=== PATIENT | female | born 1980 | race Caucasian/White ===

== ENCOUNTER 2023-06-26 21:52 | Observation (INO) | payer MEDICAID, SELFPAY ==
[2023-06-26 22:00] VITALS: BP 165/95; PULSE 87; RESP 18; TEMP 36.4; O2SAT 100
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
[2023-06-26] MEDS: KETOROLAC 60 MG/2 ML inj IM (22:23)
[2023-06-26] MEDS: HYDROmorphone 0.5 mg/0.5 ml inj 1 MG IM (22:24)
[2023-06-27] VITALS (9 sets, daily range): BP systolic 140–176; BP diastolic 76–121; PULSE 64–91; RESP 14–20; TEMP 35.9–36.7; O2SAT 95–98; BMI 47.2
[2023-06-27 00:10] LABS: Appearance Urine Cloudy (Clear); Bilirubin Urine Negative (Negative); Blood Urine Negative (Negative); Color Urine Yellow (Yellow); Glucose Urine Negative (Negative); Ketones Urine Negative (Negative); Leukocyte Esterase Urine Trace (Negative); Nitrite Urine Negative (Negative); Protein Urine Negative (Negative); Urobilinogen Urine 0.2 (0.2-1.0)
[2023-06-27 00:26] LABS: Bacteria Urine Moderate; RBC Urine 0-2 (0-2); Squamous Epithelial Cell Urine Few (None-Few)
[2023-06-27 00:30] LABS: Basophils Absolute Auto 0.03 K/uL (0.00-0.30); Basophils Percent Auto 0.4 % (0.0-3.0); Eosinophils Percent Auto 2.4 % (0.0-7.0); Hematocrit 41.6 % (33.0-51.0); Hemoglobin* 13.9 gm/dL (12.0-16.0); Immature Granulocytes Abs Auto 0.01 K/uL (0.00-0.30); Immature Granulocytes Pct Auto 0.1 %; Lymphocytes Absolute Auto 2.83 K/uL (0.90-2.90); Lymphocytes Percent Auto 33.3 % (20-44); Mean Corpuscular HGB Conc 33 gm/dL (32-36); Mean Corpuscular Hemoglobin 29 pg (26-34); Mean Corpuscular Volume 88 fL (80-100); Monocytes Percent Auto 4.5 % (0.0-11.0); Neutrophils Absolute Auto 5.05 K/uL (1.7-7.0); Neutrophils Percent Auto 59.3 % (42.0-72.0); Platelet Count* 283 K/uL (140-440); RDW Coefficient of Variation % 13.7 % (11.5-15.5); Red Blood Count 4.74 m/uL (4.00-5.20)
[2023-06-27] MEDS: LORazepam 2 MG/ML inj 0.5 MG IVP (00:33)
[2023-06-27] MEDS: 0.9 % SODIUM CHLORIDE 1000 ml 1,000 ML IV (00:33)
[2023-06-27 00:42] LABS: Chloride* 107 mmol/L (96-114); Sodium* 140 mmol/L (135-149)
[2023-06-27 00:43] LABS: Potassium* 3.8 mmol/L (3.6-5.1)
[2023-06-27 00:45] LABS: Creatinine* 0.7 mg/dL (0.5-1.5); Estimated Glomerular Filt Rate 109 ml/min
[2023-06-27 00:46] LABS: Anion Gap 5 mEq/L (7-15); Blood Urea Nitrogen* 11 mg/dL (5-24); Calcium* 9.3 mg/dL (8.4-10.6); Carbon Dioxide* 28 mmol/L (20-32); Glucose* 126 mg/dL (60-115)
[2023-06-27 00:49] LABS: C Reactive Protein* 1.3 mg/dL (0.5-1.0); Slide Review Reflex No
[2023-06-27 02:05] LABS: NT Pro B Type NatriureticPept* 108 pg/mL
[2023-06-27] MEDS: METHYLPREDNISOLONE SOD SUCC 62.5 MG/ML (125) 80 MG IVP (03:27)
[2023-06-27] MEDS: OxyCODONE/APAP 5-325 TABLET 2 TAB PO (03:28)
--- NOTE | 2023-06-27 04:15 | ED.NURSE ---
Patients to desk stating that the patient would like to leave. RN went into the room and patient stated that she didnt want to leave but that she wanted to go outside and smoke. Nurse explained that patient was unable to do this but provider her with nicotine options. Patient stated that she would try the lozenges. When staff brought them into the room patient refused them and said just admit me.
--- NOTE | 2023-06-27 04:41 | ED.NURSE ---
Nurse to nurse report given to ROCIO High
[2023-06-27] MEDS: ENOXAPARIN 30 MG/0.3ML INJ SUBCUT (06:31)
[2023-06-27] MEDS: hydrOXYzine pamoate 25 MG CAPSULE PO (06:35)
[2023-06-27] MEDS: ACETAMINOPHEN 325 MG TABLET PO (06:35)
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
[2023-06-27] MEDS: IBUPROFEN 400 MG TABLET PO (08:51)
[2023-06-27] MEDS: GABAPENTIN 300 MG CAPSULE PO ×3 (08:52→21:39)
[2023-06-27] MEDS: SODIUM CHLORIDE 0.9 % (FLUSH) 10 ML SYRINGE 5 ML IVF ×2 (08:52→21:40)
[2023-06-27] MEDS: IBUPROFEN 600 MG TABLET PO (12:53)
--- NOTE | 2023-06-27 12:57 | REH.PT ---
PT attempted evaluation x2 and both times pt was sleeping. Per nsg pt has been up without a device. Will attempt evaluation tomorrow if pt is appropriate.
--- NOTE | 2023-06-27 13:03 | REH.OT ---
Orders received for OT eval and treat. Attempted x 2 patient sleeping and not wanting to be disturbed. Will attempt on 06/28/23.
[2023-06-27 14:08] LABS: Ur HCG Qualitative* Negative (Negative)
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
--- NOTE | 2023-06-27 20:29 | PC.NURSE ---
Pt sleeping for vitals @1930, sig. other asked to let her sleep. Entered room @2019, pt sitting at bedside leaning on table. Pt not responding to primary writers questions rather sig. other answering. Offered medications per MAR, pt refused stated they don't help and she'll just deal with the pain.
[2023-06-27] MEDS: ENOXAPARIN 40 MG/0.4 ML INJ SUBCUT (21:39)
[2023-06-27] MEDS: OXYCODONE 5 MG TABLET PO (21:40)
[2023-06-27 22:54] LABS: Troponin I* < 0.01 ng/mL (0.01-0.04)
[2023-06-28] VITALS (8 sets, daily range): BP systolic 136–160; BP diastolic 86–112; PULSE 64–91; RESP 14–20; TEMP 36.1–36.4; O2SAT 91–97
[2023-06-28] MEDS: OXYCODONE 5 MG TABLET PO ×3 (03:11→12:04)
--- NOTE | 2023-06-28 06:40 | PC.NURSE ---
Pt slept most of night, up with sig. other to BR or sitting at bedside. See MAR for medication administration.
[2023-06-28] MEDS: ACETAMINOPHEN 325 MG TABLET PO ×2 (07:57→14:51)
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
--- NOTE | 2023-06-28 10:15 | CRLHL7_ITS ---
For Patients: As a result of the Century Cures Act, medical imaging exams and procedure reports are released immediately into your electronic medical record. You may view this report before your referring provider. If you have questions, please contact your health care provider. CLINICAL HISTORY: HX RENAL CELL CARCINOMA (LEFT, MASS SURGICALLY REMOVED), HX KIDNEY STONES, ABD PAIN COMPARISON: CT lumbar spine 06/26/2023 TECHNIQUE: Calhoun scale and color Doppler images were acquired of the kidneys and urinary bladder. FINDINGS: Small bilateral renal stones. No hydronephrosis. No solid mass. No cyst. The right kidney measures 11.9cm in length and the left kidney measures 11.9cm in length. The renal cortex measures 1.3 cm on the right and 1.3 cm on the left. Normal color Doppler flow to both kidneys. The urinary bladder appears normal. IMPRESSION: Tiny bilateral renal stones without hydronephrosis. No solid renal mass. Dictated by Aramis Win MD @ 06/28/2023 12:01:56 PM (Electronically Signed)
[2023-06-28 10:21] LABS: HCO3 VBG 23 mmol/L (21-28); Lactate* 2.2 mmol/L (0.5-1.9); PCO2 VBG 41 mmHG (40-50); PO2 VBG 69.8 mmHG (25-47); pH VBG 7.358 (7.32-7.43)
[2023-06-28] MEDS: GABAPENTIN 300 MG CAPSULE PO ×2 (10:24→14:51)
[2023-06-28 10:27] LABS: Basophils Percent Auto 0.1 % (0.0-3.0); Eosinophils Percent Auto 0.5 % (0.0-7.0); Hemoglobin* 14.1 gm/dL (12.0-16.0); Immature Granulocytes Pct Auto 0.2 %; Lymphocytes Percent Auto 21.3 % (20-44); Mean Corpuscular HGB Conc 34 gm/dL (32-36); Mean Corpuscular Hemoglobin 30 pg (26-34); Mean Corpuscular Volume 88 fL (80-100); Monocytes Percent Auto 3.2 % (0.0-11.0); Neutrophils Percent Auto 74.7 % (42.0-72.0); Platelet Count* 288 K/uL (140-440); RDW Coefficient of Variation % 13.9 % (11.5-15.5); Red Blood Count 4.78 m/uL (4.00-5.20); White Blood Count* 13.05 K/uL (4.50-11.00)
[2023-06-28 10:38] LABS: Amphetamine Screen Urine POSITIVE (Negative); Barbiturate Screen Urine Negative (Negative); Benzodiazepines Screen Urine Negative (Negative); Cannabinoid Screen Urine POSITIVE (Negative); Cocaine Screen Urine Negative (Negative); Methadone Screen Urine Negative (Negative); Methamphetamines Screen Urine POSITIVE (Negative); Opiate Screen Urine POSITIVE (Negative); Oxycodone Screen Urine Negative (Negative); Phencyclidine Screen Urine Negative (Negative); Tricyclic Antidepressant Urine Negative (Negative)
[2023-06-28 10:40] LABS: Slide Review Reflex No
[2023-06-28 10:42] LABS: INR 0.95 (0.91-1.10); Prothrombin Time 13.2 Seconds
[2023-06-28 10:43] LABS: Albumin* 4.2 g/dL (3.3-5.0); Potassium* 3.7 mmol/L (3.6-5.1); Sodium* 139 mmol/L (135-149)
[2023-06-28 10:45] LABS: Creatinine* 0.6 mg/dL (0.5-1.5); Est. Creatinine Clearance* 90.29; Estimated Glomerular Filt Rate 113 ml/min
[2023-06-28 10:46] LABS: Alanine Aminotransferase* 40 U/L (4-35); Alkaline Phosphatase* 141 U/L (40-150); Aspartate Amino Transferase* 34 U/L (12-35); Bilirubin Direct* 0.1 mg/dL (0.0-0.5); Bilirubin Total* 0.3 mg/dL (0.1-1.5); Blood Urea Nitrogen* 13 mg/dL (5-24); Carbon Dioxide* 20 mmol/L (20-32); Glucose* 282 mg/dL (60-115); Lipase* 73 U/L (23-300); Phosphorus* 3.1 mg/dL (2.5-4.5); Total Protein* 7.4 g/dL (6.0-8.3)
[2023-06-28 10:47] LABS: Calcium* 9.1 mg/dL (8.4-10.6)
[2023-06-28 10:49] LABS: C Reactive Protein* 0.8 mg/dL (0.5-1.0)
[2023-06-28 10:57] LABS: Anion Gap 10 mEq/L (7-15); Chloride* 109 mmol/L (96-114)
[2023-06-28 10:59] LABS: HCG Qualitative Serum* Negative (Negative)
[2023-06-28 11:01] LABS: Iron* 78 ug/dL (37-170)
[2023-06-28 11:02] LABS: Procalcitonin* 0.05 ng/mL (<0.50)
[2023-06-28 11:10] LABS: Percent Iron Saturation 21 % (20-50); Total Iron Binding Capacity 380 ug/dL (265-497)
[2023-06-28 11:51] LABS: Hemoglobin A1C* 4.89 % (0-5.6)
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
[2023-06-28] MEDS: SODIUM CHLORIDE 0.9 % (FLUSH) 10 ML SYRINGE 5 ML IVF ×2 (12:03→14:21)
[2023-06-28] MEDS: LORazepam 2 MG/ML inj 1 MG IVP (12:03)
--- NOTE | 2023-06-28 13:41 | REH.PT ---
Orders for PT Eval & Treat received, chart reviewed. Seen in pm with pt able to self transfer supine<>sit and sit<>stand while moaning due to back pain. Reports that her back locks up with movement. Pt able to to amb bed<>bathroom with supervision while using the furniture and wall for one handed support. Refused to try a 2ww to assist with mobility. Pt keeping her eyes closed through much of session and not receptive to intervention. D/C PT orders.
[2023-06-28] MEDS: 0.9 % SODIUM CHLORIDE 1000 ml 1,000 ML 500 ML IV (14:20)
--- NOTE | 2023-06-28 15:18 | P.EN_ITS ---
Chart Event Note Date Seen: 06/28/23 Chart Event Note: Patient is sleepy and slow to respond to me when I come to see her this afternoon. She indicates still having ongoing back pain. Discussed results of today's evaluation: lumbar MRI shows degenerative changes. I recommend outpatient back therapy for this on ongoing basis. Renal ultrasound showed tiny nonobstructive stones and no renal mass. Echocardiogram is relatively normal on preliminary report. I discussed findings on urine drug screen positive for a mphetamine/methamphetamine, opioids and cannabis. Patient denies using any of these medications. I voice concern about substance abuse. Recommend we try to manage her pain without using controlled substances. Patient verbalizes severe says frustrates barker with her longstanding pain problems. She denies suicidality. Is considering going home.
--- NOTE | 2023-06-28 15:32 | CRLHL7_ITS ---
For Patients: As a result of the Century Cures Act, medical imaging exams and procedure reports are released immediately into your electronic medical record. You may view this report before your referring provider. If you have questions, please contact your health care provider. INDICATION: Low back pain. Bowel and bladder incontinence. History of Brown Sequard syndrome. TECHNIQUE: Sagittal and axial T1, sagittal and axial T2 and sagittal STIR images were obtained. FINDINGS: There is minimal degenerative anterolisthesis at the L4-5 level. No compression fractures. The distal spinal cord is normal in morphology and terminates normally at the L1 level. Equivocal foci of T2 prolongation within the distal spinal cord at the T12 level (images 1-5 of axial series 8). MRI of the thoracic spine, including axial T2 images may be useful in further assessment. No disc herniation or stenosis at the T10-11, T11-12 or T12-L1 levels. At L1-2 there is normal disc height and disc hydration without disc herniation or stenosis of the spinal canal or neural foramen. At L2-3 there is normal disc height and disc hydration without disc herniation or stenosis the spinal canal or neural foramen. At L3-4 there is normal disc height and disc hydration without disc herniation or stenosis of the spinal canal or neural foramen. At L4-5 there is mild degenerative anterolisthesis. There is bilateral facet arthropathy, greater on the right than left with a small right-sided facet joint effusion. There is associated mild to moderate right neural foraminal narrowing due to facet and ligamentum thickening with potential irritation of the exiting right L4 nerve root. No central spinal canal stenosis. At L5-S1 no disc herniation or stenosis of the spinal canal or neural foramen. IMPRESSION: 1. At L4-5 there is right-sided facet arthropathy, joint effusion and bone edema consistent with active arthritis or stress response. Associated mild to moderate right L4 neural foraminal narrowing and potential right L4 nerve impingement. 2. Equivocal, nonspecific signal change in the distal-most spinal cord (T12 level). 3. No significant stenosis of the lower spinal canal as visualized (T10 through S1). Dictated by Jax Hopkins MD @ 06/28/2023 1:15:27 PM (Electronically Signed)
--- NOTE | 2023-06-28 19:04 | PC.NURSE ---
.End of shift.. VSS on RA, Pt is very detached and dismissive during cares. She rocks back and forth and will groan in pain with any movement. She refused all of her scheduled IBU today as well. Refused orthostatic BP's as well. Oxy was discontinued per Dr Sorto's orders. Aqua K pack applied for back pain relief. Recheck for labs in the AM. Hugo is at the bedside. ECHO/ MRI and ultrasound was completed today as well.
--- NOTE | 2023-06-28 20:32 | PC.NURSE ---
RN witnessed pt using vaping product in the hospital bathroom, in room 281. Pt spent approximally 40-45 minutes in that bathroom. While pt was caught with vape in her hand she stated I'm just holding it, and on the frutti smell she stated it's the fruit smell throughout the entire room, however there is no fruit in the pt room. RN informed the pt about the smoking policy, RN stated that the security and hospitalist will be notified. House/Sup, security and were notified.
--- NOTE | 2023-06-28 21:28 | PC.NURSE ---
Security and RN went to the room to serve the smoking policy and reinforce the hospital rules. The pt stated she would like to leave now. RN provided the AMA paperwork, read it out loud for the pt, which pt signed at 2099. Pt DC accompanied by her significant other via W/C at 2129.
== END 2023-06-28 21:30 | disposition home or self-care (01) ==
LOC: ED 06-27 03:27 → MEDSURG 06-27 04:41
PROVIDERS: Family Medicine; Admitting Provider Family Medicine; Emergency Provider Family Medicine; Visit Provider Family Medicine
DX: M47.817 Spondylosis without myelopathy or radiculopathy, lumbosacral region (principal); F41.9 Anxiety disorder, unspecified; R55 Syncope and collapse; R15.9 Full incontinence of feces; R32 Unspecified urinary incontinence; N20.0 Calculus of kidney; R60.0 Localized edema; R25.2 Cramp and spasm; R73.9 Hyperglycemia, unspecified; D72.829 Elevated white blood cell count, unspecified; R74.02 Elevation of levels of lactic acid dehydrogenase [LDH]; R82.5 Elevated urine levels of drugs, medicaments and biological substances; M54.50 Low back pain, unspecified; G89.21 Chronic pain due to trauma; M79.605 Pain in left leg; M79.604 Pain in right leg; F17.210 Nicotine dependence, cigarettes, uncomplicated; R11.10 Vomiting, unspecified; R11.0 Nausea; Z87.442 Personal history of urinary calculi; Z98.890 Other specified postprocedural states
CPT/HCPCS: 36415; 72131; 72148; 76775; 80048; 80069; 80076; 80306; 81001; 81025; 82803; 83036; 83540; 83550; 83605; 83690; 83880; 84145; 84443; 84484; 84703; 85025; 85048; 85610; 86140; 87086; 87186; 93005; 93306; 96361; 96365; 96366; 96372; 96375; 99284; 99285; G0378; A9270; J1170; J1650; J1885; J2060; J2930; J3490; J7030